=== PATIENT | male | born 1970 | race Caucasian/White ===

== ENCOUNTER 2022-07-17 05:50 | Outpatient (CLI) | payer OTHER ==
[~2022-07-17] VITALS: Ht 172.7 cm; Wt 88.6 kg
[2022-07-18] MEDS ORDERED: AMLO-251 PO (10:42)
[2022-07-18] MEDS ORDERED: PANT40TA52 PO (10:42)
[2022-07-18] MEDS ORDERED: MTP100TCR PO (10:42)
[2022-07-18] MEDS ORDERED: TELM80TA8 PO (10:42)
== END 2022-07-18 10:45 | disposition home or self-care (01) ==
LOC: PREOP 05:50
PROVIDERS: ATTEND Surgery
DX: Z01.818 Encounter for other preprocedural examination (principal)

== ENCOUNTER 2022-07-30 12:18 | Day surgery (SDC) | payer OTHER ==
[~2022-07-30] VITALS: Ht 173 cm; Wt 88.6 kg
[~2022-07-30 12:18] MED LIST: AMLO-251 PO; MTP100TCR PO; PANT40TA52 PO; TELM80TA8 PO
[2022-07-30] MEDS ORDERED: LACTATED RINGERS 1,000 ML IV STA (12:19)
[2022-07-30] MEDS ORDERED: HURRICAINE EXT TUBE (BENZOCAINE) XX PRN (12:30)
[2022-07-30 13:15] VITALS: BP 166/100
--- NOTE | 2022-07-30 13:23 | Progress Note-Pre Operative ---
Pre-Operative Progress Note Date of Available H&P: Jul 10, 2022 Date H&P Reviewed: Jul 30, 2022 Time H&P Reviewed: 13:23 History & Physical: H&P Reviewed, Patient Examed, No changes noted Pre-Operative Diagnosis: screening colonoscopy NAVID DELGADILLO DO Jul 30, 2022 13:23
[2022-07-30] MEDS ORDERED: PROPOFOL INJECTION 50 ML IV ONE (15:02)
--- NOTE | 2022-07-30 15:02 | Discharge Inst-Simple/Standard ---
Discharge Inst-Standard Patient Instructions/Follow Up Plan of Care/Instructions/FU: 2 weeks Ana Activity as Tolerated: Yes Discharge Diet: Regular Diet NAVID DELGADILLO DO Jul 30, 2022 15:02
[2022-07-30 15:05] VITALS: BP 114/76
[2022-07-30 15:10] VITALS: BP 114/76
[2022-07-30 15:15] VITALS: BP 119/80
[2022-07-30 15:34] VITALS: BP 136/95
--- NOTE | 2022-07-30 17:38 | Anesthesia-General Post-Op ---
MAC Patient Condition Mental Status/LOC: Same as Preop Cardiovascular: Satisfactory Nausea/Vomiting: Absent Respiratory: Satisfactory Pain: Controlled Complications: Absent Post Op Complications Complications None Follow Up Care/Instructions Patient Instructions None needed. Anesthesiology Discharge Order Discharge Order Patient is doing well, no complaints, stable vital signs, no apparent adverse anesthesia problems. No complications reported per nursing. SCOTT LAM CRNA Jul 30, 2022 17:38
--- NOTE | 2022-07-31 00:55 | OPERATIVE REPORT ---
DATE OF SERVICE: 07/30/2022 PREOPERATIVE DIAGNOSIS: Screening colonoscopy. POSTOPERATIVE DIAGNOSIS: Descending colon polyp. PROCEDURE: Colonoscopy with hot biopsy polypectomy x1. SURGEON: Navid Perez DO. ANESTHESIA: Per [employer]ER. ESTIMATED BLOOD LOSS: None. COMPLICATIONS: None. INDICATIONS: The patient is a 52-year-old male, needing screening colonoscopy. He understands risks and benefits of procedure and wished to proceed. Consent was signed in chart. DESCRIPTION OF PROCEDURE: The patient was taken to endoscopy suite, placed in left lateral recumbent position. Timeout was performed. Digital rectal exam was performed. No palpable polyps, masses or ulcerations. Scope was inserted into the rectum, advanced all the way to the cecum with minimal difficulty. Prep was adequate. Scope was slowly retracted back. No polyps, mass, ulceration in the cecum, ascending, transverse colon. In the descending colon, a small polyp was present, which a hot biopsy polypectomy was performed. Scope was then slowly retracted back. No polyps, mass, or ulceration in the remainder of the descending and sigmoid colon. Once in the rectum, scope was retroflexed noting no other pathology. Scope was returned to its normal position and slowly withdrawn until completely removed. The patient tolerated the procedure well without complications, taken to recovery room in stable condition. RECOMMENDATIONS: The patient will need repeat colonoscopy in 5 years. Any issues before that will be seen at that time. We will follow up on pathology in 2 weeks. Job ID: [id number] DocumentID: [id number] Dictated Date: 07/30/2022 15:06:31 Chassis Inspector Date: 07/31/2022 00:53:00 Dictated By: NAVID PEREZ DO
== END 2022-07-30 15:38 | disposition home or self-care (01) ==
LOC: ENDO 12:18
PROVIDERS: ATTEND Surgery
DX: Z12.11 Encounter for screening for malignant neoplasm of colon (principal); D12.4 Benign neoplasm of descending colon; K21.00 Gastro-esophageal reflux disease with esophagitis, without bleeding; Z79.899 Other long term (current) drug therapy